=== PATIENT | female | born 1930 | race Caucasian/White ===

== ENCOUNTER → 2016-09-16 | Outpatient (CLI) | payer OTHER | END | disposition home or self-care (01) | LOC: LAB 11:38 | PROVIDERS: ATTEND Family Medicine | DX: R19.7 Diarrhea, unspecified (principal) | CPT/HCPCS: 87045; 87493; 87899 ==

== ENCOUNTER → 2017-01-28 | Outpatient (CLI) | payer OTHER ==
[2017-01-28 09:20] LABS: Urine Bilirubin Negative (Negative); Urine Blood Negative /uL (Negative); Urine Color Yellow (Yellow); Urine Glucose Normal (Normal); Urine Ketone Negative (Negative); Urine Mucus FEW (None Seen); Urine Nitrite Negative (Negative); Urine RBC <1 /hpf (0 - 4); Urine Squamous Epithelial Cell FEW /hpf (<5); Urine Urobilinogen Normal (Negative); Urine pH 6.5 (5.0-8.0)
[2017-01-28 09:43] LABS: Albumin 3.4 g/dL (3.4-5.0); BUN/Creatinine Ratio 20.4; Bilirubin, Total 0.5 mg/dL (0.2-1.0); Calcium 9.2 mg/dL (8.5-10.1); Potassium 4.4 mmol/L (3.5-5.1); Total Protein 7.6 g/dL (6.4-8.2)
[2017-01-28 10:29] LABS: Basophils # (auto) 0.1 uL; Basophils % (auto) 1.1 % (0.0-2.0); Eosinophils # (auto) 0.3 uL; Eosinophils % (auto) 4.1 % (0.0-7.0); Hematocrit 40.1 % (36.0-46.0); Hemoglobin 13.6 g/dL (12.2-16.2); Lymphocytes # (auto) 1.9 uL; Lymphocytes % (auto) 27.4 % (10.0-50.0); Mean Corpuscular Hemoglobin 30.5 pg (28.0-32.0); Mean Corpuscular Hgb Conc. 33.9 g/dL (32.0-36.0); Mean Corpuscular Volume 89.9 fL (80.0-100.0); Mean Platelet Volume 9.4 fL (6.9-10.8); Monocytes # (auto) 0.5 uL; Monocytes % (auto) 7.3 % (0.0-12.0); Neutrophils # (auto) 4.1 uL; Neutrophils % (auto) 60.1 % (37.0-80.0); Nucleated Red Blood Cells % 0.1 %; Platelet Count (auto) 267 10^3/uL (140-450); Red Cell Distribution Width 13.7 % (11.8-14.3); White Blood Cell 6.8 10^3/uL (4.4-10.8)
== END | disposition home or self-care (01) ==
LOC: LAB 08:28
PROVIDERS: ATTEND Family Medicine
DX: I10 Essential (primary) hypertension (principal); E78.5 Hyperlipidemia, unspecified
CPT/HCPCS: 36415; 80053; 80061; 81001; 85025

== ENCOUNTER 2018-01-22 17:10 | Inpatient (IN) | payer OTHER ==
[~2018-01-22] VITALS: Ht 160 cm; Wt 59.1 kg
[2018-01-22 17:57] LABS: Basophils # (auto) 0.1 uL; Basophils % (auto) 1.3 % (0.0-2.0); Eosinophils # (auto) 0.2 uL; Eosinophils % (auto) 2.3 % (0.0-7.0); Hematocrit 37.6 % (36.0-46.0); Hemoglobin 12.7 g/dL (12.2-16.2); Lymphocytes # (auto) 1.9 uL; Lymphocytes % (auto) 27.9 % (10.0-50.0); Mean Corpuscular Hgb Conc. 33.6 g/dL (32.0-36.0); Mean Corpuscular Volume 89.1 fL (80.0-100.0); Monocytes # (auto) 0.6 uL; Monocytes % (auto) 9.2 % (0.0-12.0); Neutrophils % (auto) 59.3 % (37.0-80.0); Nucleated Red Blood Cells % 0.1 %; Platelet Count (auto) 257 10^3/uL (140-450); Red Blood Cells 4.22 10^6/uL (4.0-5.20); Red Cell Distribution Width 14.1 % (11.8-14.3); White Blood Cell 6.7 10^3/uL (4.4-10.8)
[2018-01-22 18:11] LABS: Albumin 2.8 g/dL (3.4-5.0); BUN/Creatinine Ratio 21.6; Calcium 8.5 mg/dL (8.5-10.1)
[2018-01-22 18:16] LABS: Bilirubin, Total 0.2 mg/dL (0.2-1.0); Total Protein 6.5 g/dL (6.4-8.2)
[2018-01-22] MEDS ORDERED: ONDANSETRON HCL 4 MG/2 ML VIAL IV ONE (19:00)
[2018-01-22] MEDS ORDERED: MORPHINE SULFATE 4 MG/ML SYR/VIAL IV ONE (19:00)
[2018-01-22] MEDS ORDERED: ASPirin 81 mg TAB PO ONE (19:30)
[2018-01-22] MEDS ORDERED: DIGOXIN 0.25 MG TAB PO ONE (20:30)
[2018-01-22 20:34] LABS: INR 0.94 (0.9-1.15); Partial Thromboplastin Time 24.5 sec (23.78-33.04); Prothrombin Time 10.1 sec (9.27-12.13)
[2018-01-22] MEDS ORDERED: ONDANSETRON HCL 4 MG/2 ML VIAL IV PRN (23:30)
[2018-01-22] MEDS ORDERED: NITROGLYCERIN 0.4 MG SL TAB SL PRN (23:30)
[2018-01-22] MEDS ORDERED: MORPHINE SULFATE 4 MG/ML SYR/VIAL IV PRN (23:30)
[2018-01-23] VITALS (9 sets, daily range): BP systolic 86–127; BP diastolic 45–77
[2018-01-23] MEDS: HYDROcodone-ACET 5/325MG TAB PO PRN ×3 (00:59→17:43)
[2018-01-23] MEDS: ACETAMINOPHEN 500 MG TAB PO PRN ×2 (03:04→22:09)
[2018-01-23] MEDS ORDERED: MORPHINE SULFATE 4 MG/ML SYR/VIAL IV PRN (04:00)
[2018-01-23] MEDS ORDERED: DILTIAZEM HCL 120MG ER CAP PO ONE (06:15)
[2018-01-23] MEDS: ASPirin-EC 81 mg tab PO SCH (09:45)
[2018-01-23] MEDS: ENOXAPARIN SOD 60 MG/0.6 ML SYRINGE SC SCH (11:45)
[2018-01-23] MEDS ORDERED: LISINOPRIL 10 MG TAB PO ONE (12:30)
[2018-01-23] MEDS ORDERED: ATORVASTATIN 20 MG TAB PO ONE (12:30)
[2018-01-23] MEDS ORDERED: ASPI-378 PO (16:52)
[2018-01-23] MEDS ORDERED: CALC667C PO (16:52)
[2018-01-23] MEDS ORDERED: HYDR12.56 PO (16:52)
[2018-01-23] MEDS ORDERED: OMEG100078 PO (16:52)
[2018-01-23] MEDS ORDERED: ALEN1TAB32 PO (16:52)
[2018-01-23] MEDS ORDERED: DILT-5 PO (16:52)
[2018-01-23] MEDS ORDERED: MULTTAB5 OR (16:52)
[2018-01-23] MEDS ORDERED: SIMV10TA84 PO (16:52)
[2018-01-23] MEDS ORDERED: ATEN50TA PO (16:52)
[2018-01-23 17:37] LABS: Urine Bacteria NONE SEEN /hpf (None Seen); Urine Blood Negative /uL (Negative); Urine Specific Gravity 1.005 (1.001-1.035); Urine WBC 23 /hpf (0 - 5)
[2018-01-23] MEDS ORDERED: ENOXAPARIN SOD 100 MG/1 ML SYRINGE SC SCH (22:00)
[2018-01-23] MEDS: ATORVASTATIN 20 MG TAB PO SCH (22:05)
[2018-01-24] MEDS: HYDROcodone-ACET 5/325MG TAB PO PRN ×2 (04:06→17:10)
[2018-01-24 04:34] VITALS: BP 100/58
[2018-01-24 08:35] VITALS: BP 92/60
[2018-01-24] MEDS: LISINOPRIL 10 MG TAB PO SCH (10:00)
[2018-01-24] MEDS: ENOXAPARIN SOD 60 MG/0.6 ML SYRINGE SC SCH (10:09)
[2018-01-24] MEDS: ASPirin-EC 81 mg tab PO SCH (10:09)
[2018-01-24 13:45] VITALS: BP 98/70
[2018-01-24 17:10] VITALS: BP 112/80
[2018-01-24] MEDS ORDERED: DILTIAZEM HCL 180MG ER CAP PO ONE (17:30)
[2018-01-24 22:00] VITALS: BP 92/63
[2018-01-24] MEDS: ATORVASTATIN 20 MG TAB PO SCH (23:33)
[2018-01-25 05:32] VITALS: BP 119/69
[2018-01-25] MEDS ORDERED: ADENOSINE 49 MG in GIVE UN-DILUTED 0 ML IV STA (08:48)
[2018-01-25 09:01] VITALS: BP 102/76
[2018-01-25 11:23] VITALS: BP 113/80
[2018-01-25] MEDS: ASPirin-EC 81 mg tab PO SCH (12:55)
[2018-01-25] MEDS: LISINOPRIL 10 MG TAB PO SCH (12:56)
[2018-01-25] MEDS: ENOXAPARIN SOD 60 MG/0.6 ML SYRINGE SC SCH (12:56)
[2018-01-25 17:15] VITALS: BP 92/54
[2018-01-25] MEDS: CILOSTAZOL 100 MG TAB PO SCH (21:31)
[2018-01-25] MEDS: ATORVASTATIN 20 MG TAB PO SCH (21:31)
[2018-01-25 22:00] VITALS: BP 154/89
[2018-01-26 04:57] VITALS: BP 113/70
[2018-01-26 06:19] LABS: BUN/Creatinine Ratio 28.6; Calcium 8.2 mg/dL (8.5-10.1); Potassium 4.4 mmol/L (3.5-5.1)
[2018-01-26 09:59] VITALS: BP 111/87
[2018-01-26] MEDS: CILOSTAZOL 100 MG TAB PO SCH ×2 (10:21→21:34)
[2018-01-26] MEDS: ASPirin-EC 81 mg tab PO SCH (10:21)
[2018-01-26] MEDS: LISINOPRIL 10 MG TAB PO SCH (10:22)
[2018-01-26] MEDS: ENOXAPARIN SOD 60 MG/0.6 ML SYRINGE SC SCH (10:22)
[2018-01-26 13:11] VITALS: BP 115/72
[2018-01-26] MEDS ORDERED: DILTIAZEM HCL 25 MG/5 ML VIAL IV ONE (15:00)
[2018-01-26 17:21] VITALS: BP 112/66
[2018-01-26] MEDS: APIXABAN 5 MG TAB PO SCH (21:35)
[2018-01-26] MEDS: ATORVASTATIN 20 MG TAB PO SCH (21:35)
[2018-01-26] MEDS: AMIODARONE HCL 200 MG TAB PO SCH (21:35)
[2018-01-26 22:01] VITALS: BP 104/76
[2018-01-27 05:11] VITALS: BP 109/69
[2018-01-27 09:00] VITALS: BP 114/87
[2018-01-27] MEDS: CILOSTAZOL 100 MG TAB PO SCH ×2 (09:35→21:59)
[2018-01-27] MEDS: APIXABAN 5 MG TAB PO SCH ×2 (09:36→21:59)
[2018-01-27] MEDS: AMIODARONE HCL 200 MG TAB PO SCH ×2 (09:37→22:00)
[2018-01-27] MEDS: LISINOPRIL 10 MG TAB PO SCH (09:38)
[2018-01-27] MEDS ORDERED: DILTIAZEM HCL 120MG ER CAP PO SCH (10:00)
[2018-01-27 13:00] VITALS: BP 121/73
[2018-01-27 17:00] VITALS: BP 97/60
[2018-01-27] MEDS ORDERED: DIGOXIN (250MCG/ML) 2 ML AMPULE IV ONE (18:00)
[2018-01-27 21:47] VITALS: BP 116/60
[2018-01-27] MEDS: ATORVASTATIN 20 MG TAB PO SCH (21:59)
[2018-01-28] MEDS: ACETAMINOPHEN 500 MG TAB PO PRN ×2 (03:35→22:22)
[2018-01-28 05:17] VITALS: BP 130/66
[2018-01-28 09:00] VITALS: BP 133/80
[2018-01-28] MEDS ORDERED: DIGOXIN 0.125 MG TAB PO ONE (10:15)
[2018-01-28] MEDS: DILTIAZEM HCL 120MG ER CAP PO SCH (10:22)
[2018-01-28] MEDS: AMIODARONE HCL 200 MG TAB PO SCH ×2 (10:22→22:21)
[2018-01-28] MEDS: CILOSTAZOL 100 MG TAB PO SCH ×2 (10:23→22:21)
[2018-01-28] MEDS: APIXABAN 5 MG TAB PO SCH ×2 (10:23→22:21)
[2018-01-28] MEDS: LISINOPRIL 10 MG TAB PO SCH (10:24)
[2018-01-28] MEDS ORDERED: DIGOXIN (250MCG/ML) 2 ML AMPULE IV ONE (11:30)
[2018-01-28 13:00] VITALS: BP 117/70
[2018-01-28 22:00] VITALS: BP 128/68
[2018-01-28] MEDS: ATORVASTATIN 20 MG TAB PO SCH (22:21)
[2018-01-29 05:28] VITALS: BP 121/57
[2018-01-29] MEDS: ACETAMINOPHEN 500 MG TAB PO PRN (05:41)
[2018-01-29 09:00] VITALS: BP 106/67
[2018-01-29] MEDS ORDERED: DIGOXIN 0.125 MG TAB PO SCH (10:00)
[2018-01-29] MEDS: LISINOPRIL 10 MG TAB PO SCH (10:00)
[2018-01-29] MEDS ORDERED: PROMETHAZINE HCL 25 MG/ML 1ML IV PRN (10:00)
[2018-01-29] MEDS: APIXABAN 5 MG TAB PO SCH ×2 (10:15→22:29)
[2018-01-29] MEDS: DILTIAZEM HCL 120MG ER CAP PO SCH (10:16)
[2018-01-29] MEDS: PANTOPRAZOLE 40 MG/10 ML VIAL IV SCH (10:17)
[2018-01-29] MEDS: CILOSTAZOL 100 MG TAB PO SCH ×2 (10:17→22:30)
[2018-01-29] MEDS: AMIODARONE HCL 200 MG TAB PO SCH ×2 (10:18→22:29)
[2018-01-29 13:00] VITALS: BP 122/52
[2018-01-29 16:35] VITALS: BP 117/58
[2018-01-29 22:00] VITALS: BP 114/80
[2018-01-29] MEDS: ATORVASTATIN 20 MG TAB PO SCH (22:30)
[2018-01-30 05:22] VITALS: BP 148/78
[2018-01-30 06:56] LABS: Basophils # (auto) 0.1 uL; Basophils % (auto) 1.1 % (0.0-2.0); Eosinophils # (auto) 0.4 uL; Eosinophils % (auto) 4.9 % (0.0-7.0); Hematocrit 37.9 % (36.0-46.0); Hemoglobin 12.8 g/dL (12.2-16.2); Lymphocytes # (auto) 1.5 uL; Lymphocytes % (auto) 20.4 % (10.0-50.0); Mean Corpuscular Hemoglobin 30.4 pg (28.0-32.0); Mean Corpuscular Hgb Conc. 33.9 g/dL (32.0-36.0); Mean Corpuscular Volume 89.9 fL (80.0-100.0); Monocytes # (auto) 0.6 uL; Monocytes % (auto) 7.8 % (0.0-12.0); Neutrophils # (auto) 4.8 uL; Neutrophils % (auto) 65.8 % (37.0-80.0); Platelet Count (auto) 337 10^3/uL (140-450); Red Blood Cells 4.22 10^6/uL (4.0-5.20); Red Cell Distribution Width 13.6 % (11.8-14.3); White Blood Cell 7.2 10^3/uL (4.4-10.8)
[2018-01-30 07:20] LABS: Albumin 2.5 g/dL (3.4-5.0); BUN/Creatinine Ratio 15.2; Calcium 8.2 mg/dL (8.5-10.1); Potassium 4.8 mmol/L (3.5-5.1)
[2018-01-30 07:23] LABS: Bilirubin, Total 0.6 mg/dL (0.2-1.0); Total Protein 6.6 g/dL (6.4-8.2)
[2018-01-30 08:00] VITALS: BP 141/68
[2018-01-30] MEDS: DILTIAZEM HCL 120MG ER CAP PO SCH (10:12)
[2018-01-30] MEDS: PANTOPRAZOLE 40 MG/10 ML VIAL IV SCH (10:12)
[2018-01-30] MEDS: AMIODARONE HCL 200 MG TAB PO SCH ×2 (10:13→21:29)
[2018-01-30] MEDS: APIXABAN 5 MG TAB PO SCH ×2 (10:13→21:29)
[2018-01-30] MEDS: LISINOPRIL 10 MG TAB PO SCH (10:14)
[2018-01-30] MEDS: DIGOXIN 0.125 MG TAB PO SCH (10:14)
[2018-01-30] MEDS: CILOSTAZOL 100 MG TAB PO SCH ×2 (10:14→21:30)
[2018-01-30 12:07] VITALS: BP 121/77
[2018-01-30 16:47] VITALS: BP 105/57
[2018-01-30] MEDS: ATORVASTATIN 20 MG TAB PO SCH (21:29)
[2018-01-30 22:00] VITALS: BP 105/57
[2018-01-31] MEDS: ACETAMINOPHEN 500 MG TAB PO PRN (04:09)
[2018-01-31 05:00] VITALS: BP 118/67
[2018-01-31 08:55] VITALS: BP 109/58
[2018-01-31] MEDS: PANTOPRAZOLE 40 MG/10 ML VIAL IV SCH (10:00)
[2018-01-31] MEDS: LISINOPRIL 10 MG TAB PO SCH (10:00)
[2018-01-31] MEDS: CILOSTAZOL 100 MG TAB PO SCH ×2 (10:28→22:05)
[2018-01-31] MEDS: APIXABAN 5 MG TAB PO SCH ×2 (10:29→22:05)
[2018-01-31] MEDS: DILTIAZEM HCL 120MG ER CAP PO SCH (10:29)
[2018-01-31] MEDS: AMIODARONE HCL 200 MG TAB PO SCH ×2 (10:29→22:05)
[2018-01-31 11:44] VITALS: BP 117/63
[2018-01-31] MEDS ORDERED: SIMV10TA84 PO (15:02)
[2018-01-31] MEDS ORDERED: OMEG10003 PO (15:04)
[2018-01-31 17:07] VITALS: BP 125/66
[2018-01-31 22:00] VITALS: BP 115/65
[2018-01-31] MEDS: ATORVASTATIN 20 MG TAB PO SCH (22:05)
[2018-02-01 05:01] VITALS: BP 120/71
[2018-02-01] MEDS ORDERED: MULTTAB5 PO (09:32)
[2018-02-01] MEDS ORDERED: ASP81EC PO (09:33)
[2018-02-01] MEDS ORDERED: DILT-5 PO (09:37)
[2018-02-01] MEDS ORDERED: OMEG100078 PO (09:38)
[2018-02-01] MEDS: APIXABAN 5 MG TAB PO SCH (09:53)
[2018-02-01] MEDS: CILOSTAZOL 100 MG TAB PO SCH (09:53)
[2018-02-01 09:54] VITALS: BP 132/73
[2018-02-01] MEDS: AMIODARONE HCL 200 MG TAB PO SCH (09:54)
[2018-02-01] MEDS: DILTIAZEM HCL 120MG ER CAP PO SCH (09:55)
[2018-02-01] MEDS: LISINOPRIL 10 MG TAB PO SCH (09:55)
[2018-02-01] MEDS: DIGOXIN 0.125 MG TAB PO SCH (09:55)
[2018-02-01] MEDS: PANTOPRAZOLE 40 MG/10 ML VIAL IV SCH (10:00)
[2018-02-01 11:17] VITALS: BP 132/73
[2018-02-01 12:48] VITALS: BP 144/79
== END 2018-02-01 12:40 | disposition home or self-care (01) | DRG 281 ==
LOC: ER 17:10 → EDBD 17:10 → WEST WING 17:11 → TELE-WESTW 01-23 00:29
PROVIDERS: ADMIT Nurse Practitioner Family; ATTEND Family Medicine
DX: I21.4 Non-ST elevation (NSTEMI) myocardial infarction (principal); N17.9 Acute kidney failure, unspecified; E44.0 Moderate protein-calorie malnutrition; E78.00 Pure hypercholesterolemia, unspecified; I12.9 Hypertensive chronic kidney disease with stage 1 through stage 4 chronic kidney disease, or unspecified chronic kidney disease; I48.91 Unspecified atrial fibrillation; I73.9 Peripheral vascular disease, unspecified; I77.1 Stricture of artery; M48.061 Spinal stenosis, lumbar region without neurogenic claudication; M54.31 Sciatica, right side; M81.0 Age-related osteoporosis without current pathological fracture; N18.3 Chronic kidney disease, stage 3 (moderate); Z79.82 Long term (current) use of aspirin; Z82.49 Family history of ischemic heart disease and other diseases of the circulatory system; Z79.899 Other long term (current) drug therapy
CPT/HCPCS: 36415; 71045; 72100; 72131; 78452; 80048; 80053; 80162; 81001; 83735; 83880; 84443; 84484; 85025; 85610; 85730; 93005; 93017; 93306; 93926; 93971; 94761; 96374; 96375; A6257; C9113; J0153; J2405

== ENCOUNTER → 2018-03-01 | Outpatient (CLI) | payer OTHER ==
[~2018-03-01] MED LIST: ALEN1TAB32 PO; ASP81EC PO; ATEN50TA PO; CALC667C PO; DILT-5 PO; MULTTAB5 PO; OMEG100078 PO; SIMV10TA84 PO
[2018-03-01 08:55] LABS: Albumin 3.1 g/dL (3.4-5.0); BUN/Creatinine Ratio 18.5; Calcium 8.6 mg/dL (8.5-10.1); Potassium 4.6 mmol/L (3.5-5.1)
[2018-03-01 08:58] LABS: Bilirubin, Total 0.4 mg/dL (0.2-1.0); Total Protein 6.9 g/dL (6.4-8.2)
== END | disposition home or self-care (01) ==
LOC: LAB 08:23
PROVIDERS: ATTEND Internal Medicine
DX: I10 Essential (primary) hypertension (principal)
CPT/HCPCS: 36415; 80053; 80162

== ENCOUNTER → 2018-06-14 | Outpatient (CLI) | payer OTHER ==
[2018-06-14 12:15] LABS: INR 0.95 (0.9-1.15); Partial Thromboplastin Time 25.9 sec (23.78-33.04); Prothrombin Time 10.2 sec (9.27-12.13)
== END | disposition home or self-care (01) ==
LOC: LAB 11:07
PROVIDERS: ATTEND Internal Medicine
DX: I73.9 Peripheral vascular disease, unspecified (principal); I70.90 Unspecified atherosclerosis; R91.1 Solitary pulmonary nodule; I10 Essential (primary) hypertension
CPT/HCPCS: 36415; 85610; 85730

== ENCOUNTER → 2018-06-15 | Outpatient (CLI) | payer OTHER ==
[~2018-06-15] MED LIST changes: +LIDOCAINE 2% (LOCAL ANESTH.) PF 5ml SDV ONE; +MIDAZOLAM HCL 1MG/1ML-2 ML VIAL IV ONE; +fentaNYL CITRATE 100 MCG/2 ML VL IV ONE
== END | disposition home or self-care (01) ==
LOC: XYW 10:43
PROVIDERS: ATTEND Internal Medicine
DX: D36.7 Benign neoplasm of other specified sites (principal); R22.31 Localized swelling, mass and lump, right upper limb; I48.91 Unspecified atrial fibrillation; Z98.890 Other specified postprocedural states
CPT/HCPCS: 20206; 73700; 77012; 88305; J2001; J2250; J3010; 10005; 10022

== ENCOUNTER → 2018-09-15 | Outpatient (CLI) | payer OTHER ==
[~2018-09-15] MED LIST changes: -LIDOCAINE 2% (LOCAL ANESTH.) PF 5ml SDV ONE; -MIDAZOLAM HCL 1MG/1ML-2 ML VIAL IV ONE; -fentaNYL CITRATE 100 MCG/2 ML VL IV ONE
[2018-09-15 16:05] LABS: Albumin 3.5 g/dL (3.4-5.0); Calcium 9.4 mg/dL (8.5-10.1); Potassium 4.4 mmol/L (3.5-5.1)
[2018-09-15 16:10] LABS: BUN/Creatinine Ratio 20.7; Bilirubin, Total 0.5 mg/dL (0.2-1.0); Total Protein 7.9 g/dL (6.4-8.2)
== END | disposition home or self-care (01) ==
LOC: LAB 10:55
PROVIDERS: ATTEND Internal Medicine
DX: I10 Essential (primary) hypertension (principal)
CPT/HCPCS: 36415; 80053

== ENCOUNTER → 2018-09-27 | Outpatient (CLI) | payer OTHER | END | disposition home or self-care (01) | LOC: LAB 12:54 | PROVIDERS: ATTEND Internal Medicine | DX: I48.91 Unspecified atrial fibrillation (principal); Z79.899 Other long term (current) drug therapy | CPT/HCPCS: 36415; 80162 ==

== ENCOUNTER → 2019-01-02 | Outpatient (CLI) | payer OTHER ==
[~2019-01-02] MED LIST changes: -DILT-5 PO; +DILT120C64 PO
[2019-01-02 12:20] LABS: Basophils # (auto) 0.1 uL; Basophils % (auto) 0.9 % (0.0-2.0); Eosinophils # (auto) 0.2 uL; Eosinophils % (auto) 2.4 % (0.0-7.0); Hematocrit 41.7 % (36.0-46.0); Hemoglobin 13.9 g/dL (12.2-16.2); Lymphocytes # (auto) 1.7 uL; Lymphocytes % (auto) 24.8 % (10.0-50.0); Mean Corpuscular Hemoglobin 30.2 pg (28.0-32.0); Mean Corpuscular Hgb Conc. 33.4 g/dL (32.0-36.0); Mean Corpuscular Volume 90.5 fL (80.0-100.0); Monocytes # (auto) 0.5 uL; Monocytes % (auto) 7.3 % (0.0-12.0); Neutrophils # (auto) 4.5 uL; Neutrophils % (auto) 64.6 % (37.0-80.0); Platelet Count (auto) 294 10^3/uL (140-450); Red Blood Cells 4.61 10^6/uL (4.0-5.20); Red Cell Distribution Width 13.5 % (11.8-14.3); White Blood Cell 6.9 10^3/uL (4.4-10.8)
[2019-01-02 13:07] LABS: Potassium 4.5 mmol/L (3.5-5.1)
[2019-01-02 13:14] LABS: Albumin 3.2 g/dL (3.4-5.0); BUN/Creatinine Ratio 24.6; Bilirubin, Total 0.5 mg/dL (0.2-1.0); Calcium 9.4 mg/dL (8.5-10.1); Total Protein 7.5 g/dL (6.4-8.2)
== END | disposition home or self-care (01) ==
LOC: LAB 11:33
PROVIDERS: ATTEND Internal Medicine
DX: I48.91 Unspecified atrial fibrillation (principal); K86.9 Disease of pancreas, unspecified; R91.1 Solitary pulmonary nodule; I10 Essential (primary) hypertension; E78.00 Pure hypercholesterolemia, unspecified
CPT/HCPCS: 36415; 80053; 83880; 85025

== ENCOUNTER → 2019-03-07 | Outpatient (CLI) | payer OTHER ==
[2019-03-07 11:55] LABS: Albumin 3.3 g/dL (3.4-5.0); Calcium 9.6 mg/dL (8.5-10.1)
[2019-03-07 11:59] LABS: BUN/Creatinine Ratio 21.9; Bilirubin, Total 0.4 mg/dL (0.2-1.0); Total Protein 7.3 g/dL (6.4-8.2)
== END | disposition home or self-care (01) ==
LOC: LAB 11:13
PROVIDERS: ATTEND Internal Medicine
DX: Z00.00 Encounter for general adult medical examination without abnormal findings (principal); E03.9 Hypothyroidism, unspecified; K90.9 Intestinal malabsorption, unspecified; N39.0 Urinary tract infection, site not specified; D51.9 Vitamin B12 deficiency anemia, unspecified; I10 Essential (primary) hypertension; I48.91 Unspecified atrial fibrillation; Z79.899 Other long term (current) drug therapy
CPT/HCPCS: 36415; 80053; 80162

== ENCOUNTER → 2019-03-17 | Outpatient (CLI) | payer OTHER | END | disposition home or self-care (01) | LOC: Rad HDHVI 14:00 | PROVIDERS: ATTEND Internal Medicine | DX: J98.11 Atelectasis (principal); J91.8 Pleural effusion in other conditions classified elsewhere; I48.91 Unspecified atrial fibrillation; I70.0 Atherosclerosis of aorta; I25.10 Atherosclerotic heart disease of native coronary artery without angina pectoris; I35.8 Other nonrheumatic aortic valve disorders; I11.9 Hypertensive heart disease without heart failure | CPT/HCPCS: 71046; 71250; 93306 ==

== ENCOUNTER → 2019-03-17 | Outpatient (CLI) | payer OTHER | END | disposition home or self-care (01) | LOC: LAB 15:03 | PROVIDERS: ATTEND Internal Medicine | DX: R19.7 Diarrhea, unspecified (principal) | CPT/HCPCS: 82705 ==

== ENCOUNTER → 2019-03-31 | Outpatient (CLI) | payer OTHER ==
[~2019-03-31] MED LIST changes: +APIX2.5T PO; +CALC600T38 PO; +DIGO0.1262 PO; +HYDR12.56 PO; +LISI-275 PO
[2019-03-31 09:51] VITALS: BP 114/74
[2019-03-31 10:16] VITALS: BP 114/74
--- NOTE | 2019-03-31 10:16 | NUR ---
Pre-Op Discharge Summary: See e-MAR for any medications given for this visit. Pre-op orders received and carried out per MD of EKG, LABS and chest xrays. Patient given a copy of EKG with instructions to go to [facility] out patient for further follow up care.
[2019-03-31 11:43] LABS: Basophils # (auto) 0.1 uL; Basophils % (auto) 1.2 % (0.0-2.0); Eosinophils # (auto) 0.2 uL; Eosinophils % (auto) 2.1 % (0.0-7.0); Hematocrit 42.6 % (36.0-46.0); Hemoglobin 14.1 g/dL (12.2-16.2); Lymphocytes # (auto) 1.7 uL; Lymphocytes % (auto) 22.2 % (10.0-50.0); Mean Corpuscular Hemoglobin 30.2 pg (28.0-32.0); Mean Corpuscular Hgb Conc. 33.1 g/dL (32.0-36.0); Mean Corpuscular Volume 91.4 fL (80.0-100.0); Monocytes # (auto) 0.6 uL; Monocytes % (auto) 8.4 % (0.0-12.0); Neutrophils # (auto) 5.1 uL; Neutrophils % (auto) 66.1 % (37.0-80.0); Nucleated Red Blood Cells % 0.1 %; Platelet Count (auto) 303 10^3/uL (140-450); Red Blood Cells 4.66 10^6/uL (4.0-5.20); Red Cell Distribution Width 13.9 % (11.8-14.3); White Blood Cell 7.7 10^3/uL (4.4-10.8)
[2019-03-31 11:53] LABS: BUN/Creatinine Ratio 20.2
[2019-03-31 12:09] LABS: INR 1.02 (0.9-1.15); Partial Thromboplastin Time 27.8 sec (23.64-32.05)
== END | disposition home or self-care (01) ==
LOC: Rad HDHVI 09:17
PROVIDERS: ATTEND Internal Medicine
DX: Z01.812 Encounter for preprocedural laboratory examination (principal); J98.11 Atelectasis; J90 Pleural effusion, not elsewhere classified; I70.0 Atherosclerosis of aorta
CPT/HCPCS: 36415; 71046; 80048; 85025; 85610; 85730; 93005; G0463

== ENCOUNTER 2019-04-04 11:05 | Day surgery (SDC) | payer OTHER ==
[~2019-04-04] VITALS: Ht 157.5 cm; Wt 54.5 kg
[~2019-04-04 11:05] MED LIST changes: -ASP81EC PO; -CALC667C PO; +DIGO0.12 PO; -DIGO0.1262 PO
[2019-04-04] MEDS ORDERED: FUROSEMIDE 20 MG/2 ML VIAL IV ONE (14:30)
[2019-04-04] MEDS ORDERED: ACETAMINOPHEN 500 MG TAB PO PRN (15:30)
== END 2019-04-04 16:31 | disposition home or self-care (01) ==
LOC: CATH 11:05
PROVIDERS: ATTEND Internal Medicine Cardiovascular Disease
DX: J90 Pleural effusion, not elsewhere classified (principal); I10 Essential (primary) hypertension; E78.5 Hyperlipidemia, unspecified; J44.9 Chronic obstructive pulmonary disease, unspecified; I25.10 Atherosclerotic heart disease of native coronary artery without angina pectoris; I48.91 Unspecified atrial fibrillation; I70.8 Atherosclerosis of other arteries
CPT/HCPCS: 32555; 71045; 87205; 88104; 88305; 88342; 89051; J1940; 76942

== ENCOUNTER → 2019-05-23 | Outpatient (CLI) | payer OTHER | END | disposition home or self-care (01) | LOC: Rad HDHVI 11:14 | PROVIDERS: ATTEND Internal Medicine | DX: J90 Pleural effusion, not elsewhere classified (principal); R91.8 Other nonspecific abnormal finding of lung field | CPT/HCPCS: 71046 ==

== ENCOUNTER → 2019-07-03 | Outpatient (CLI) | payer OTHER ==
[2019-07-03 12:17] LABS: Basophils # (auto) 0.1 10 ^3/uL (0-0.2); Basophils % (auto) 1.1 % (0.0-2.0); Eosinophils # (auto) 0.1 10 ^3/uL (0-0.8); Hematocrit 42.5 % (36.0-46.0); Hemoglobin 14.2 g/dL (12.2-16.2); Lymphocytes # (auto) 1.8 10 ^3/uL (0.4-5.4); Lymphocytes % (auto) 25.3 % (10.0-50.0); Mean Corpuscular Hgb Conc. 33.4 g/dL (32.0-36.0); Mean Corpuscular Volume 89.6 fL (80.0-100.0); Monocytes # (auto) 0.5 10 ^3/uL (0-1.3); Monocytes % (auto) 7.5 % (0.0-12.0); Neutrophils # (auto) 4.5 10 ^3/uL (1.6-8.6); Neutrophils % (auto) 64.1 % (37.0-80.0); Nucleated Red Blood Cells % 0.1 %; Platelet Count (auto) 275 10^3/uL (140-450); Red Blood Cells 4.74 10^6/uL (4.0-5.20); Red Cell Distribution Width 14.3 % (11.8-14.3)
[2019-07-03 12:39] LABS: INR 1.01 (0.9-1.15); Partial Thromboplastin Time 26.1 sec (23.64-32.05)
[2019-07-03 13:26] LABS: Albumin 3.4 g/dL (3.4-5.0); Calcium 9.4 mg/dL (8.5-10.1)
[2019-07-03 13:29] LABS: BUN/Creatinine Ratio 19.4; Bilirubin, Total 0.5 mg/dL (0.2-1.0); Total Protein 7.7 g/dL (6.4-8.2)
== END | disposition home or self-care (01) ==
LOC: LAB 11:59
PROVIDERS: ATTEND Internal Medicine Pulmonary Disease
DX: I11.0 Hypertensive heart disease with heart failure (principal); I50.9 Heart failure, unspecified; J90 Pleural effusion, not elsewhere classified; R91.1 Solitary pulmonary nodule; R06.02 Shortness of breath
CPT/HCPCS: 36415; 80053; 83880; 85025; 85610; 85730

== ENCOUNTER → 2019-07-04 | Outpatient (CLI) | payer OTHER ==
--- NOTE | 2019-07-04 11:32 | NUR ---
PT IN ULTRASOUND WITH DR MORRISON FOR A THORACENTESIS. VSS [id number]%. 1130: [id number]%. FINISHED WITH PROCEDURE. 1400 ML OF FLUID REMOVED AND SENT TO THE LAB. PT TOLERATED WELL. DRIVEN HOME BY SON.
--- NOTE | 2019-07-04 11:35 | NUR ---
POST CXR DONE BEFORE D/C HOME
== END | disposition home or self-care (01) ==
LOC: US 10:01
PROVIDERS: ATTEND Internal Medicine Pulmonary Disease
DX: J90 Pleural effusion, not elsewhere classified (principal); R91.1 Solitary pulmonary nodule; R06.02 Shortness of breath; M47.812 Spondylosis without myelopathy or radiculopathy, cervical region; I12.9 Hypertensive chronic kidney disease with stage 1 through stage 4 chronic kidney disease, or unspecified chronic kidney disease; N18.3 Chronic kidney disease, stage 3 (moderate); E78.5 Hyperlipidemia, unspecified; Z68.22 Body mass index [BMI] 22.0-22.9, adult; Z79.82 Long term (current) use of aspirin; Z79.899 Other long term (current) drug therapy
CPT/HCPCS: 32555; 71045; 76604; 83986; 87070; 87205; 88104; 88305; 88342; 89051; C1729; 10022; 76942

== ENCOUNTER → 2019-08-22 | Outpatient (CLI) | payer OTHER | END | disposition home or self-care (01) | LOC: Rad HDHVI 10:10 | PROVIDERS: ATTEND Internal Medicine | DX: J90 Pleural effusion, not elsewhere classified (principal); I51.7 Cardiomegaly | CPT/HCPCS: 71046 ==

== ENCOUNTER → 2019-10-04 | Outpatient (CLI) | payer OTHER ==
[2019-10-04 14:07] LABS: BUN/Creatinine Ratio 24.4; Calcium 8.9 mg/dL (8.5-10.1); Potassium 4.6 mmol/L (3.5-5.1)
== END | disposition home or self-care (01) ==
LOC: LAB 12:03
PROVIDERS: ATTEND Internal Medicine
DX: N18.3 Chronic kidney disease, stage 3 (moderate) (principal)
CPT/HCPCS: 36415; 80048

== ENCOUNTER 2019-10-06 06:54 | Inpatient (IN) | payer OTHER ==
[~2019-10-06] VITALS: Ht 157.5 cm; Wt 53.1 kg
[2019-10-06 07:55] LABS: Urine Bacteria FEW /hpf (None Seen); Urine Blood Negative /uL (Negative); Urine Hyaline Cast FEW /lpf (0 - 2); Urine Mucus FEW (None Seen); Urine Specific Gravity 1.012 (1.001-1.035); Urine WBC 45 /hpf (0 - 5)
[2019-10-06 07:59] LABS: Basophils # (auto) 0.1 10 ^3/uL (0-0.2); Basophils % (auto) 1.2 % (0.0-2.0); Eosinophils # (auto) 0.2 10 ^3/uL (0-0.8); Eosinophils % (auto) 2.9 % (0.0-7.0); Hemoglobin 14.3 g/dL (12.2-16.2); Lymphocytes # (auto) 1.5 10 ^3/uL (0.4-5.4); Lymphocytes % (auto) 23.6 % (10.0-50.0); Mean Corpuscular Hgb Conc. 33.3 g/dL (32.0-36.0); Monocytes # (auto) 0.5 10 ^3/uL (0-1.3); Monocytes % (auto) 7.9 % (0.0-12.0); Neutrophils # (auto) 4.2 10 ^3/uL (1.6-8.6); Neutrophils % (auto) 64.4 % (37.0-80.0); Nucleated Red Blood Cells % 0.1 %; Platelet Count (auto) 273 10^3/uL (140-450); Red Blood Cells 4.78 10^6/uL (4.0-5.20); Red Cell Distribution Width 14.3 % (11.8-14.3); White Blood Cell 6.5 10^3/uL (4.4-10.8)
[2019-10-06] MEDS ORDERED: cefTRIAXone 1GM/50ML D5W 50 ML IV ONE (08:15)
[2019-10-06 08:19] LABS: Alanine Aminotransferase 41 U/L (13-56); Albumin 3.1 g/dL (3.4-5.0); Anion Gap 6 (5-15); Aspartate Aminotransferase 30 U/L (15-37); BUN/Creatinine Ratio 22.9; Blood Urea Nitrogen 33 mg/dL (7-18); Calcium 8.9 mg/dL (8.5-10.1); Carbon Dioxide 28 mmol/L (21-32); Chloride 104 mmol/L (98-107); GFR African American 44 mL/min; GFR Non-African American 36 mL/min; Glucose 100 mg/dL (74-106); INR 1.01 (0.9-1.15); Magnesium 2.1 mg/dL (1.6-2.6); Potassium 4.2 mmol/L (3.5-5.1); Sodium 138 mmol/L (136-145)
[2019-10-06 08:24] LABS: Alkaline Phosphatase 83 U/L (45-117); Bilirubin, Total 0.6 mg/dL (0.2-1.0); Total Protein 7.6 g/dL (6.4-8.2)
[2019-10-06] MEDS ORDERED: MORPHINE SULF INJ 2 MG/ML SYRINGE 1ML IV PRN (09:30)
[2019-10-06] MEDS ORDERED: NITROGLYCERIN 0.4 MG SL TAB SL PRN (09:30)
[2019-10-06] MEDS ORDERED: TEMAZEPAM 15 MG CAP PO PRN (09:45)
[2019-10-06] MEDS ORDERED: ONDANSETRON HCL 4 MG/2 ML VIAL IV PRN (09:45)
[2019-10-06] MEDS ORDERED: ALBUTEROL SULF 2.5 MG/0.5ML(0.5%) NEB SOLN NEB PRN (09:45)
[2019-10-06] MEDS ORDERED: ACETAMINOPHEN 500 MG TAB PO PRN (09:45)
[2019-10-06] MEDS: OMEGA PO SCH (10:00)
[2019-10-06] MEDS: FATTY ACIDS PO SCH (10:00)
[2019-10-06] MEDS: CALCIUM 600 MG PO SCH (10:00)
[2019-10-06] MEDS ORDERED: FAMOTIDINE 20 MG TAB PO SCH (10:00)
[2019-10-06 10:09] VITALS: BP 114/73
[2019-10-06] MEDS: DIGOXIN 0.125 MG TAB PO SCH (10:46)
[2019-10-06] MEDS: LISINOPRIL 5 MG TAB PO SCH (10:47)
[2019-10-06] MEDS: FAMOTIDINE 20 MG TAB PO SCH (10:59)
[2019-10-06 12:38] VITALS: BP 132/59
[2019-10-06] MEDS: HCTZ 25 MG TAB PO SCH (13:18)
[2019-10-06] MEDS: ATENOLOL 50 MG TAB PO SCH (13:19)
[2019-10-06 17:00] VITALS: BP 123/64
[2019-10-06] MEDS: ATORVASTATIN 20 MG TAB PO SCH (18:01)
[2019-10-06] MEDS: dilTIAZem 120MG ER CAP PO SCH (18:02)
[2019-10-06] MEDS: traMADol HCL 50 MG TAB PO PRN (20:14)
[2019-10-06 22:44] VITALS: BP 100/60
[2019-10-07 05:23] VITALS: BP 116/70
[2019-10-07] MEDS: CALCIUM 600 MG PO SCH (08:00)
[2019-10-07 09:00] VITALS: BP 110/64
[2019-10-07] MEDS: OMEGA PO SCH (09:47)
[2019-10-07] MEDS: FATTY ACIDS PO SCH (09:47)
[2019-10-07] MEDS: cefTRIAXone 1GM/50ML D5W 50 ML IV SCH (09:47)
[2019-10-07] MEDS: APIXABAN 2.5 MG TAB PO SCH ×2 (09:48→21:59)
[2019-10-07] MEDS: HCTZ 25 MG TAB PO SCH (09:53)
[2019-10-07] MEDS: ATENOLOL 50 MG TAB PO SCH (09:54)
[2019-10-07] MEDS: LISINOPRIL 5 MG TAB PO SCH (09:54)
[2019-10-07] MEDS: FAMOTIDINE 20 MG TAB PO SCH (09:56)
[2019-10-07] MEDS: DIGOXIN 0.125 MG TAB PO SCH (09:56)
[2019-10-07] MEDS ORDERED: MORPHINE SULF INJ 2 MG/ML SYRINGE 1ML IV ONE (10:30)
[2019-10-07] MEDS: MORPHINE SULF INJ 2 MG/ML SYRINGE 1ML IV PRN (10:44)
[2019-10-07 13:00] VITALS: BP 117/71
[2019-10-07 17:00] VITALS: BP 113/59
[2019-10-07] MEDS: dilTIAZem 120MG ER CAP PO SCH (17:44)
[2019-10-07] MEDS: ATORVASTATIN 20 MG TAB PO SCH (18:47)
[2019-10-07 21:56] VITALS: BP 122/79
[2019-10-08] MEDS: MORPHINE SULF INJ 2 MG/ML SYRINGE 1ML IV PRN ×2 (02:00→09:06)
[2019-10-08 04:50] VITALS: BP 117/83
[2019-10-08] MEDS: CALCIUM 600 MG PO SCH (08:00)
[2019-10-08] MEDS: cefTRIAXone 1GM/50ML D5W 50 ML IV SCH (08:43)
[2019-10-08 08:44] VITALS: BP 119/87
[2019-10-08] MEDS: OMEGA PO SCH (09:58)
[2019-10-08] MEDS: FATTY ACIDS PO SCH (09:58)
[2019-10-08] MEDS: APIXABAN 2.5 MG TAB PO SCH ×2 (09:59→21:58)
[2019-10-08] MEDS: HCTZ 25 MG TAB PO SCH (10:00)
[2019-10-08] MEDS: DIGOXIN 0.125 MG TAB PO SCH (10:00)
[2019-10-08] MEDS: ATENOLOL 50 MG TAB PO SCH ×2 (10:00→10:01)
[2019-10-08] MEDS: FAMOTIDINE 20 MG TAB PO SCH (10:00)
[2019-10-08] MEDS: LISINOPRIL 5 MG TAB PO SCH (10:01)
[2019-10-08 13:00] VITALS: BP 120/73
[2019-10-08] MEDS: dilTIAZem 120MG ER CAP PO SCH (16:59)
[2019-10-08] MEDS: ATORVASTATIN 20 MG TAB PO SCH (16:59)
[2019-10-08 17:00] VITALS: BP 99/67
[2019-10-08] MEDS: traMADol HCL 50 MG TAB PO PRN (21:58)
[2019-10-08 22:11] VITALS: BP 113/79
[2019-10-09 05:04] VITALS: BP 109/71
[2019-10-09] MEDS: traMADol HCL 50 MG TAB PO PRN ×2 (06:35→21:49)
[2019-10-09] MEDS: CALCIUM 600 MG PO SCH (08:00)
[2019-10-09 09:00] VITALS: BP 125/85
[2019-10-09 09:27] VITALS: BP 109/71
[2019-10-09] MEDS: ATENOLOL 50 MG TAB PO SCH (10:00)
[2019-10-09] MEDS: FATTY ACIDS PO SCH (10:00)
[2019-10-09] MEDS: OMEGA PO SCH (10:00)
[2019-10-09] MEDS: FAMOTIDINE 20 MG TAB PO SCH (10:00)
[2019-10-09] MEDS: HCTZ 25 MG TAB PO SCH (10:00)
[2019-10-09] MEDS: cefTRIAXone 1GM/50ML D5W 50 ML IV SCH (10:03)
[2019-10-09] MEDS: APIXABAN 2.5 MG TAB PO SCH ×2 (10:04→21:49)
[2019-10-09] MEDS: DIGOXIN 0.125 MG TAB PO SCH (10:06)
[2019-10-09] MEDS: LISINOPRIL 5 MG TAB PO SCH (10:06)
[2019-10-09] MEDS: MORPHINE SULF INJ 2 MG/ML SYRINGE 1ML IV PRN (12:38)
[2019-10-09 13:00] VITALS: BP 124/74
[2019-10-09] MEDS: ATORVASTATIN 20 MG TAB PO SCH (17:50)
[2019-10-09] MEDS: dilTIAZem 120MG ER CAP PO SCH (17:51)
[2019-10-09 20:00] VITALS: BP 97/70
[2019-10-09 22:00] VITALS: BP 97/70
[2019-10-10 05:29] VITALS: BP 113/62
[2019-10-10] MEDS: CALCIUM 600 MG PO SCH (08:00)
[2019-10-10 08:45] VITALS: BP 109/69
[2019-10-10] MEDS: FATTY ACIDS PO SCH (10:00)
[2019-10-10] MEDS: OMEGA PO SCH (10:00)
[2019-10-10] MEDS: FAMOTIDINE 20 MG TAB PO SCH (10:00)
[2019-10-10] MEDS: HCTZ 25 MG TAB PO SCH (10:00)
[2019-10-10] MEDS: ATENOLOL 50 MG TAB PO SCH (10:00)
[2019-10-10] MEDS: LISINOPRIL 5 MG TAB PO SCH (10:00)
[2019-10-10] MEDS: cefTRIAXone 1GM/50ML D5W 50 ML IV SCH (10:38)
[2019-10-10] MEDS: DIGOXIN 0.125 MG TAB PO SCH (10:39)
[2019-10-10] MEDS: APIXABAN 2.5 MG TAB PO SCH (10:39)
[2019-10-10 13:00] VITALS: BP 103/58
[2019-10-10 14:48] VITALS: BP 103/58
[2019-10-10] MEDS ORDERED: BACLOFEN 10 MG TAB PO SCH (22:00)
== END 2019-10-10 16:46 | disposition home health service (06) | DRG 186 ==
LOC: ER 06:54 → TELE 06:55 → TELE-CENTR 11:14
PROVIDERS: ADMIT Internal Medicine; ATTEND Family Medicine
PROC: 0W9B30Z Drainage of Left Pleural Cavity with Drainage Device, Percutaneous Approach (ICD-10-PCS; principal; 2019-10-06)
DX: J90 Pleural effusion, not elsewhere classified (principal); J96.00 Acute respiratory failure, unspecified whether with hypoxia or hypercapnia; J96.01 Acute respiratory failure with hypoxia; J98.11 Atelectasis; N39.0 Urinary tract infection, site not specified; I13.0 Hypertensive heart and chronic kidney disease with heart failure and stage 1 through stage 4 chronic kidney disease, or unspecified chronic kidney disease; I48.91 Unspecified atrial fibrillation; I27.20 Pulmonary hypertension, unspecified; L57.0 Actinic keratosis; N18.3 Chronic kidney disease, stage 3 (moderate); E78.00 Pure hypercholesterolemia, unspecified; E78.5 Hyperlipidemia, unspecified; I50.9 Heart failure, unspecified; Z79.01 Long term (current) use of anticoagulants; Z82.49 Family history of ischemic heart disease and other diseases of the circulatory system
CPT/HCPCS: 32555; 36415; 71045; 71046; 71250; 80053; 81001; 83735; 83880; 84484; 85025; 85610; 85730; 87086; 93005; 93306; 96365; 97163; G0378; J0696

== ENCOUNTER → 2019-10-17 | Outpatient (CLI) | payer OTHER | END | disposition home or self-care (01) | LOC: LAB 15:00 | PROVIDERS: ATTEND Physician Assistant | DX: L82.1 Other seborrheic keratosis (principal); D22.9 Melanocytic nevi, unspecified ==

== ENCOUNTER → 2019-11-29 | Outpatient (CLI) | payer OTHER | END | disposition home or self-care (01) | LOC: LAB 16:22 | PROVIDERS: ATTEND Internal Medicine Pulmonary Disease | DX: J94.8 Other specified pleural conditions (principal) ==

== ENCOUNTER → 2020-01-29 | Outpatient (CLI) | payer OTHER | END | disposition home or self-care (01) | LOC: LAB 10:49 | PROVIDERS: ATTEND Internal Medicine Pulmonary Disease | DX: J90 Pleural effusion, not elsewhere classified (principal); R91.1 Solitary pulmonary nodule | CPT/HCPCS: 83986; 89051 ==

== ENCOUNTER → 2020-03-07 | Outpatient (CLI) | payer OTHER ==
[2020-03-07 12:16] LABS: Potassium 4.2 mmol/L (3.5-5.1)
[2020-03-07 12:25] LABS: Albumin 2.5 g/dL (3.4-5.0); BUN/Creatinine Ratio 27.7; Bilirubin, Total 0.6 mg/dL (0.2-1.0); Calcium 8.8 mg/dL (8.5-10.1); Total Protein 6.8 g/dL (6.4-8.2)
== END | disposition home or self-care (01) ==
LOC: LAB 11:29
PROVIDERS: ATTEND Internal Medicine
DX: N19 Unspecified kidney failure (principal)
CPT/HCPCS: 36415; 80053; 83880; 84443

== ENCOUNTER 2020-03-11 11:25 | Emergency (ER) | payer OTHER ==
[~2020-03-11] VITALS: Ht 157.5 cm; Wt 50.8 kg
[2020-03-11 11:47] VITALS: BP 145/97
== END 2020-03-11 14:35 | disposition home or self-care (01) ==
LOC: ER 11:25
DX: J90 Pleural effusion, not elsewhere classified (principal); I11.0 Hypertensive heart disease with heart failure; I50.9 Heart failure, unspecified; E78.5 Hyperlipidemia, unspecified; Z79.899 Other long term (current) drug therapy
CPT/HCPCS: 71046